=== PATIENT | male | born 1955 | race Caucasian/White ===

== ENCOUNTER 2024-03-06 17:09 | Emergency (ER) | payer MEDICARE, OTHER | END 2024-03-06 20:19 | disposition home or self-care (01) | LOC: DL.ED 17:09 | DX: U07.1 COVID-19 (principal); E11.9 Type 2 diabetes mellitus without complications; E78.00 Pure hypercholesterolemia, unspecified; Z79.82 Long term (current) use of aspirin; Z79.899 Other long term (current) drug therapy; Z95.5 Presence of coronary angioplasty implant and graft | CPT/HCPCS: 87081; 87430; 87804; 99283; 99284; U0002 ==